=== PATIENT | female | born 1960 | race African-American/Black ===

== ENCOUNTER 2018-07-10 19:53 | Emergency (ER) | payer OTHER ==
[~2018-07-10] VITALS: Ht 170.2 cm; Wt 99.4 kg
[2018-07-10] MEDS ORDERED: HYDROcodone/APAP 5/325MG 1 TAB TABLET PO ONE (20:30)
--- NOTE | 2018-07-10 20:34 | PHYS DOC ---
Past History Past Medical History: Arthritis, Diabetes, Hypertension Past Surgical History: No Surgical History Alcohol Use: None Drug Use: None Adult General Chief Complaint Chief Complaint: GENERALIZED BODY ACHES HPI HPI 58 year old female presents with exacerbation of her chronic polydrug pain. She has been diagnosed with osteoarthritis. The patient recently moved to [place] for [facility] and has not been able to establish with a new PCP. She ran out of her normal pain medications which she states are [place] 10/ 325. She takes one to 3 days a day for pain. The patient has been trying heating pad, ice pack, with lidocaine patches at home. They do help some but not completely effective. She has an appointment with a new PCP in 4 days. She denies any new trauma. She denies fever or chills. She has no other complaints. Review of Systems Review of Systems Constitutional: Denies fever or chills [] Eyes: Denies change in visual acuity, redness, or eye pain [] HENT: Denies nasal congestion or sore throat [] Respiratory: Denies cough or shortness of breath [] Cardiovascular: No additional information not addressed in HPI [] GI: Denies abdominal pain, nausea, vomiting, bloody stools or diarrhea [] : Denies dysuria or hematuria [] Musculoskeletal: Multiple joint pain [] Integument: Denies rash or skin lesions [] Neurologic: Denies headache, focal weakness or sensory changes [] Endocrine: Denies polyuria or polydipsia [] All other systems were reviewed and found to be within normal limits, except as documented in this note. Allergies Allergies Allergies Coded Allergies Type Severity Reaction Last Updated Verified aspirin Allergy Intermediate 07/10/18 Yes meloxicam Allergy Intermediate 07/10/18 Yes Physical Exam Physical Exam Constitutional: Well developed, well nourished, no acute distress, non-toxic appearance. [] HENT: Normocephalic, atraumatic, bilateral external ears normal, oropharynx moist, no oral exudates, nose normal. [] Eyes: PERRLA, EOMI, conjunctiva normal, no discharge. [] Neck: Normal range of motion, no tenderness, supple, no stridor. [] Cardiovascular:Heart rate regular rhythm, no murmur [] Lungs & Thorax: Bilateral breath sounds clear to auscultation [] Abdomen: Bowel sounds normal, soft, no tenderness, no masses, no pulsatile masses. [] Skin: Warm, dry, no erythema, no rash. Surgical scars on bilateral wrists[] Back: No tenderness, no CVA tenderness. [] Extremities: No tenderness, no cyanosis, no clubbing, ROM intact, no edema. [] Neurologic: Alert and oriented X 3, normal motor function, normal sensory function, no focal deficits noted. [] Psychologic: Affect normal, judgement normal, mood normal. [] Current Patient Data Vital Signs Vital Signs Date Time Temp Pulse Resp B/P (MAP) Pulse Ox O2 Delivery O2 Flow Rate FiO2 07/10/18 19:55 98.2 90 18 98 Room Air EKG EKG [] Radiology/Procedures Radiology/Procedures [] Course & Med Decision Making Course & Med Decision Making Pertinent Labs and Imaging studies reviewed. (See chart for details) I explained to the patient that we are unable to provide a prescription for narcotic pain medication for chronic conditions. She understands that she needs to get these from her primary physician and coronary her old doctor with her new doctor. I am able to give the patient a pain pill here in the ED. He states understanding and does not complain about this plan. I will give her 60 mg of Toradol IM and one [place] 5/325. She is stable for discharge at this time. [] Dragon Disclaimer Dragon Disclaimer This electronic medical record was generated, in whole or in part, using a voice recognition dictation system. Departure Departure: Referrals: ELENA BEE MD (PCP) HARRY LIMON DO Jul 10, 2018 20:34
[2018-07-10] MEDS ORDERED: KETOROLAC 60 MG/2 ML VIAL. IM ONE (21:00)
[2018-07-10 21:07] VITALS: BP 154/68
== END 2018-07-10 21:06 | disposition home or self-care (01) ==
LOC: ER 19:53
DX: M25.50 Pain in unspecified joint (principal); M19.90 Unspecified osteoarthritis, unspecified site; E11.9 Type 2 diabetes mellitus without complications; I10 Essential (primary) hypertension; Z88.6 Allergy status to analgesic agent; Z88.8 Allergy status to other drugs, medicaments and biological substances
CPT/HCPCS: 96372; 99283; J1885

== ENCOUNTER 2018-12-14 07:32 | Observation (INO) | payer OTHER ==
[~2018-12-14] VITALS: Ht 170.2 cm; Wt 95.0 kg
[2018-12-14] MEDS ORDERED: IV NORMAL SALINE 1,000ML 1,000 ML IV SCH ×2 (07:45→08:47)
[2018-12-14] MEDS ORDERED: FAMOTIDINE 20 MG/2 ML VIAL IVP ONE ×2 (08:00→18:15)
[2018-12-14] MEDS ORDERED: diphenhydrAMINE 50 MG/ML VIAL IV ONE (08:00)
[2018-12-14] MEDS ORDERED: methylPREDNISolone SOD SUCC PF 125 MG/2 ML VIAL. IV ONE (08:00)
--- NOTE | 2018-12-14 08:18 | PHYS DOC ---
Past History Past Medical History: Anemia, Arthritis, Diabetes, Hypertension Past Surgical History: Cholecystectomy, Tubal ligation, Other Alcohol Use: None Drug Use: None Adult General Chief Complaint Chief Complaint: ALLERGIC REACTION HPI HPI Patient is a 58 year old female who brought in by EMS because of allergic reaction. Patient had history of diabetes and was on Lantus but because of elevation of blood sugar her physician changed Lantus to Levemir and she started the first dose of Levemir last night at 1800. Patient states she woke up this morning with swelling of her lips and tongue and lower part of face without shortness of breath, rash, itching or problem with her breathing. She complaining of problem with swallowing and talking. Patient did not have allergic reaction previously. Patient currently taking lisinopril. EMS reported patient had blood sugar read as "high". Review of Systems Review of Systems Constitutional: Denies fever or chills [] Eyes: Denies change in visual acuity, redness, or eye pain [] HENT: Denies nasal congestion or sore throat [] Respiratory: Denies cough or shortness of breath [] Cardiovascular: No additional information not addressed in HPI [] GI: Denies abdominal pain, nausea, vomiting, bloody stools or diarrhea [] : Denies dysuria or hematuria [] Musculoskeletal: Denies back pain or joint pain [] Integument: Denies rash or skin lesions [] Neurologic: Denies headache, focal weakness or sensory changes [] Endocrine: Denies polyuria or polydipsia [] All other systems were reviewed and found to be within normal limits, except as documented in this note. Current Medications Current Medications Current Medications Medications (Trade) Dose Ordered Sig/Simon Start Time Stop Time Status Last Admin Dose Admin Diphenhydramine HCl (Benadryl) 50 mg 1X ONCE 12/14/18 08:00 12/14/18 08:01 DC 12/14/18 07:54 50 MG Famotidine (Pepcid Vial) 20 mg 1X ONCE 12/14/18 08:00 12/14/18 08:01 DC 12/14/18 07:54 20 MG Methylprednisolone Sodium Succinate (SOLU-Medrol 125MG VIAL) 125 mg 1X ONCE 12/14/18 08:00 12/14/18 08:01 DC 12/14/18 07:54 125 MG Sodium Chloride 1,000 ml @ 1,000 mls/hr Q1H 12/14/18 07:45 12/14/18 08:44 12/14/18 07:56 1,000 MLS/HR Allergies Allergies Allergies Coded Allergies Type Severity Reaction Last Updated Verified aspirin Allergy Mild ITCHY 07/10/18 Yes meloxicam Allergy Mild DIZZY 07/10/18 Yes Physical Exam Physical Exam Constitutional: Well developed, well nourished, mild distress, non-toxic appearance. [] HENT: Normocephalic, atraumatic, bilateral external ears normal, facial edema without erythema, lower lip with edema, tongue with moderate edema without uvula edema,oropharynx moist, no oral exudates, nose normal. [] Eyes: PERRLA, EOMI, conjunctiva normal, no discharge. [] Neck: Normal range of motion, no tenderness, supple, no stridor. [] Cardiovascular:Heart rate regular rhythm, no murmur [] Lungs & Thorax: Bilateral breath sounds clear to auscultation [] Abdomen: Bowel sounds normal, soft, no tenderness, no masses, no pulsatile masses. [] Skin: Warm, dry, no erythema, no rash. [] Back: No tenderness, no CVA tenderness. [] Extremities: No tenderness, no cyanosis, no clubbing, ROM intact, no edema. [] Neurologic: Alert and oriented X 3, normal motor function, normal sensory function, no focal deficits noted. [] Psychologic: Affect normal, judgement normal, mood normal. [] Current Patient Data Vital Signs Vital Signs Date Time Temp Pulse Resp B/P (MAP) Pulse Ox O2 Delivery O2 Flow Rate FiO2 12/14/18 07:56 81 18 94 Room Air 12/14/18 07:32 98.3 EKG EKG [] Radiology/Procedures Radiology/Procedures [] Course & Med Decision Making Course & Med Decision Making Pertinent Labs reviewed. (See chart for details) Evaluation of patient in ER showed 58-year-old female patient with an allergic reaction and swelling of tongue and lips and face since this morning without shortness of breath. Patient treated with Benadryl, Pepcid, Solu-Medrol and IV fluid with mild improvement of her condition. Patient had also elevation of blood sugar at 507 and treated with IV fluid and insulin with gradual decrease of blood sugar to 337. Because of moderate to severe tongue edema and elevation of blood sugar plan to admit patient for treatment. Dr. Watson accepted admission at 0843. Dragon Disclaimer Dragon Disclaimer This electronic medical record was generated, in whole or in part, using a voice recognition dictation system. Departure Departure: Impression: Primary Impression: Allergic angioedema Additional Impressions: Hyperglycemia Uncontrolled diabetes mellitus Disposition: 09 ADMITTED INPATIENT (at 0 844) Admitting Physician: Alyssa Watson (accepted admission at 0843) Condition: IMPROVED Problem Qualifiers STEFAN BHATTI MD Dec 14, 2018 08:18
[2018-12-14 08:33] LABS: BASO # 0.1 x10^3/uL (0.0-0.2); BASO % 1 % (0-3); EOS # 0.1 x10^3/uL (0.0-0.7); EOS % 1 % (0-3); HEMATOCRIT 33.8 % (36.0-47.0); HEMOGLOBIN 10.3 g/dL (12.0-15.5); LYMPH # 2.7 x10^3/uL (1.0-4.8); LYMPH % 22 % (24-48); MEAN CORPUSCULAR HEMOGLOBIN 20 pg (25-35); MEAN CORPUSCULAR HGB CONC 31 g/dL (31-37); MEAN CORPUSCULAR VOLUME 64 fL (79-100); MONO # 0.7 x10^3/uL (0.0-1.1); MONO % 6 % (0-9); NEUT # 8.5 x10^3uL (1.8-7.7); NEUT % 70 % (31-73); PLATELET COUNT 147 x10^3/uL (140-400); RED BLOOD COUNT 5.26 x10^6/uL (3.50-5.40); RED CELL DISTRIBUTION WIDTH 18.3 % (11.5-14.5); WHITE BLOOD COUNT 12.1 x10^3/uL (4.0-11.0)
[2018-12-14] MEDS ORDERED: INSULIN REGULAR 100 UNIT/ML 3ML VIAL. IV ONE (08:45)
[2018-12-14 08:46] LABS: ALBUMIN 3.1 g/dL (3.4-5.0); ALBUMIN/GLOBULIN RATIO 0.7 (1.0-1.7); CALCIUM 8.8 mg/dL (8.5-10.1); CREATININE 1.1 mg/dL (0.6-1.0); GFR 62.2; POTASSIUM 3.5 mmol/L (3.5-5.1); TOTAL BILIRUBIN 0.2 mg/dL (0.2-1.0); TOTAL PROTEIN 7.6 g/dL (6.4-8.2)
[2018-12-14 09:35] VITALS: BP 110/75
[2018-12-14 10:19] LABS: ANISOCYTOSIS SLIGHT; HYPOCHROMIA MOD; PLT ESTIMATE DECREASED (ADEQUATE); POLYCHROMASIA PRESENT
[2018-12-14 10:20] LABS: MICROCYTOSIS MOD; STOMATOCYTES OCC
[2018-12-14] MEDS ORDERED: ATOR20TA58 PO (11:23)
[2018-12-14] MEDS ORDERED: CARV12.5 PO (11:23)
[2018-12-14] MEDS ORDERED: AMLO10TA6 PO (11:23)
[2018-12-14] MEDS ORDERED: FLUC100T4 PO (11:23)
[2018-12-14] MEDS ORDERED: LISI40TA PO (11:23)
[2018-12-14] MEDS ORDERED: INSU100I13 SQ (11:23)
[2018-12-14] MEDS ORDERED: MIRT30TA3 PO (11:23)
[2018-12-14] MEDS ORDERED: PREG150C PO (11:23)
[2018-12-14] MEDS ORDERED: HYDR12.58 PO (11:23)
[2018-12-14] MEDS ORDERED: GLIM2TAB2 PO (11:23)
[2018-12-14] MEDS ORDERED: SITA100T PO (11:23)
[2018-12-14] MEDS ORDERED: OXYC1TAB22 PO (11:23)
[2018-12-14] MEDS ORDERED: ESCITALOPRAM OX10 MG PO (11:23)
[2018-12-14] MEDS ORDERED: DEXTROSE 50% 25 GM / 50ML DISP.SYRIN. IV PRN (11:30)
[2018-12-14] MEDS ORDERED: INSULIN LISPRO 300 UNITS/3 ML INSULN.PEN. SQ SCH (12:00)
[2018-12-14 15:23] VITALS: BP 120/80
--- NOTE | 2018-12-14 16:00 | HP ---
ADMIT DATE: 12/14/2018 HISTORY OF PRESENT ILLNESS: The patient is a 58-year-old -[place]ones[place] female patient, who was brought to the Emergency Room by emergency medical service because of allergic reaction. The patient has a history of diabetes and was on Lantus because of elevation of blood sugar. Her physician changed Lantus to Levemir and she started her dose of Levemir last night at 1800. The patient stated that she woke up in this morning with swelling of her lips, tongue and lower part of her face without shortness of breath, rash, itching, and problem with breathing. She did complain of problem with swallowing and talking. She did not have allergic reaction previously. She is also taking lisinopril. Her blood sugar was read as high when she was checked by emergency medical service personnel. She was evaluated in the Emergency Room, was treated for angioneurotic edema, most likely due to lisinopril. She also noted to have poorly controlled diabetes mellitus and severe hyperglycemia. She was given IV Solu-Medrol, IV fluid as well as Benadryl and Pepcid. She did dramatically improve actually by the time I saw her, she was already eating her lunch and has no problem with swallowing or the lip swelling, tongue and lower part of the face swelling has largely subsided. PAST MEDICAL HISTORY: Significant for hypertension, type 2 diabetes, hyperlipidemia, osteoarthritis, sickle cell trait, right-sided carotid stenosis with left-sided CVA in 2007. PAST SURGICAL HISTORY: Significant for cholecystectomy, total abdominal hysterectomy, bilateral salpingo-oophorectomy, left wrist fracture, status post open reduction and internal fixation and right carotid endarterectomy. ALLERGIES: She is allergic to ASPIRIN AND MELOXICAM. MEDICATIONS: She is currently on following medications: She is on fluconazole 100 mg once a day, atorvastatin calcium 20 mg daily, carvedilol 12.5 mg twice a day with meals, amlodipine 10 mg daily, lisinopril 40 mg daily, oxycodone/APAP 10/325 one tablet every 6 hours, pregabalin 150 mg twice a day, escitalopram oxalate 10 mg once a day, mirtazapine 30 mg at bedtime, hydrochlorothiazide 12.5 mg once a day. She is on sitagliptin phosphate 100 mg once a day. She is on Lantus 30 units at bedtime and she is on glimepiride 2 mg daily. FAMILY HISTORY: She has one brother, who is younger and has hypertension and open heart surgery. One sister younger has diabetes and hypertension. Her father and is known to have sickle cell anemia. Mother at the age of 56 because of acute upper airway obstruction, possibly angioneurotic edema. SOCIAL HISTORY: She is . She has 5 daughters and 5 sons. She smokes a pack a day, does not drink alcohol or recreational drugs. She is currently on disability. She used a cane. REVIEW OF SYSTEMS: The patient denied any blurring of vision, cataract, glaucoma or macular degeneration. Denied any earache, tinnitus or sensorineural deafness. Denied any nosebleeds, stuffy nose or postnasal drip. Denied any sore throat, sore tongue, toothache, hoarseness of voice or difficulty swallowing. Denied any nausea, vomiting, diarrhea or constipation. Denied any hematemesis, melena or hematochezia. Denied any dysuria, frequency or hematuria. Denied any chest pain. Did complain obviously of shortness of breath, tingling and numbness and swelling of her lips and tongue as well as her lower side of the face. PHYSICAL EXAMINATION: GENERAL: On examining her, she looked well and was clearly in no apparent respiratory distress, slightly pale, but no jaundice, cyanosis, or thyromegaly. No jugular venous distension. No lower limb edema. VITAL SIGNS: Her heart rate was 80, blood pressure was 143/104, temperature was 98.3, respiratory rate was 18 and oxygen saturation was 94%. HEAD, EYES, EARS, NOSE AND THROAT: Showed normocephalic, atraumatic. NECK: Supple. HEART: Showed normal first and second heart sounds with no gallop, rub or murmur. CHEST: Clear to auscultation. No crepitation or rhonchi. ABDOMEN: Distended, soft, nontender. NEUROLOGIC: She is awake, alert, responding appropriately. Cranial nerves intact. EXTREMITIES: She moves extremities without difficulty. She ambulates with a cane. LABORATORY DATA: On arrival showed a white cell count 12,000, hemoglobin 10, hematocrit 33, MCV 64 and platelet count of 147,000. Her serum sodium was 133, potassium 3.5, chloride 93, bicarbonate 31, anion gap of 9, BUN 14, creatinine 1.1, estimated GFR was 62 mL per minute. Her glucose was 508, calcium was 8.8. Total bilirubin, AST, ALT, alkaline phosphatase were normal. Total protein was 7.6, albumin 3.1. ASSESSMENT AND PLAN: The patient was diagnosed with angioneurotic edema, most likely secondary to lisinopril, although her mom has of upper airway obstruction and she might obviously has C1 esterase inhibitor, although she has never had any similar episode before and she has lisinopril and also that changed to Levemir. I will continue with the Benadryl and I will add another dose of Solu-Medrol. I advised the patient to stay overnight and can be discharged back home tomorrow to follow with her primary care physician. We will change her lisinopril to losartan and advised her to discontinue lisinopril altogether. ALVIN YI MD DR: MAYRA/coco JOB#: [id number] / [id number]
[2018-12-14] MEDS: CARVEDILOL 12.5 MG TABLET PO SCH (16:10)
[2018-12-14] MEDS: oxyCODONE/APAP 10/325 1 TAB TABLET PO PRN ×2 (16:12→22:30)
[2018-12-14] MEDS ORDERED: INSULIN LISPRO 300 UNITS/3 ML INSULN.PEN. SQ ONE ×2 (17:00→20:30)
[2018-12-14] MEDS: INSULIN LISPRO 300 UNITS/3 ML INSULN.PEN. SQ SCH (17:00)
[2018-12-14] MEDS ORDERED: diphenhydrAMINE HCL 25 MG CAPSULE PO ONE (18:15)
[2018-12-14] MEDS ORDERED: methylPREDNISolone SOD SUCC PF 40 MG/ML VIAL. IV ONE (18:15)
[2018-12-14 19:42] VITALS: BP 122/75
[2018-12-14] MEDS: PREGABALIN 75 MG CAPSULE PO SCH (20:48)
[2018-12-14] MEDS ORDERED: INSULIN GLARGINE 300 UNITS/3 ML INSULN.PEN. SQ SCH (21:00)
[2018-12-14] MEDS ORDERED: MIRTAZAPINE 30 MG TABLET PO SCH (21:00)
[2018-12-14 23:29] LABS: CLARITY,URINE CLEAR; COLOR,URINE YELLOW
[2018-12-14 23:30] LABS: BACTERIA,URINE 0 /HPF (0-FEW); BILIRUBIN,URINE NEG (NEG); GLUCOSE,URINE >=1000 mg/dL (NEG); NITRITE,URINE NEG (NEG); RBC,URINE 0 /HPF (0-2); SQUAMOUS EPITHELIAL CELL,UR FEW /LPF; UROBILINOGEN,URINE 0.2 mg/dL (0.2 mg/dL); WBC,URINE RARE /HPF (0-4)
[2018-12-14 23:48] VITALS: BP 116/75
[2018-12-15 06:01] VITALS: BP 119/74
[2018-12-15] MEDS: INSULIN LISPRO 300 UNITS/3 ML INSULN.PEN. SQ SCH ×2 (08:18→12:13)
[2018-12-15] MEDS: CARVEDILOL 12.5 MG TABLET PO SCH (08:20)
[2018-12-15] MEDS: oxyCODONE/APAP 10/325 1 TAB TABLET PO PRN (08:21)
[2018-12-15] MEDS: PREGABALIN 75 MG CAPSULE PO SCH (08:23)
[2018-12-15] MEDS ORDERED: FLUCONAZOLE 100 MG TABLET. PO SCH (09:00)
[2018-12-15] MEDS ORDERED: amLODIPine BESYLATE 10 MG TABLET PO SCH (09:00)
[2018-12-15] MEDS ORDERED: CITALOPRAM 20 MG TABLET. PO SCH (09:00)
[2018-12-15] MEDS ORDERED: LOSARTAN 50 MG TABLET. PO SCH (09:00)
[2018-12-15] MEDS ORDERED: LINAGLIPTIN 5 MG TABLET PO SCH (09:00)
[2018-12-15] MEDS ORDERED: GLIMEPIRIDE 2 MG TABLET PO SCH (09:00)
[2018-12-15] MEDS ORDERED: ATORVASTATIN CALCIUM 20 MG TABLET PO SCH (09:00)
[2018-12-15] MEDS ORDERED: hydroCHLOROthiazide 25 MG TABLET PO SCH (09:00)
[2018-12-15 11:20] VITALS: BP 102/66
[2018-12-15] MEDS ORDERED: LOSA100T14 PO (14:14)
--- NOTE | 2018-12-15 15:18 | DS ---
DATE OF DISCHARGE: 12/15/2018 HOSPITAL COURSE: The patient is a 58-year-old -[place] female patient, who was admitted with a complaint of swelling of her tongue, lower part of her face, both lips and was evaluated in the Emergency Room, was diagnosed with angioneurotic edema, treated with IV Solu-Medrol, Pepcid as well as Benadryl, was kept in the hospital for more than 24 hours. We did repeat her treatment with Solu-Medrol, Benadryl, and Pepcid. She has had no further episode of angioneurotic edema. I discontinued her lisinopril, start her on losartan and was discharged home. Her blood sugar was high yesterday, so we adjusted her insulin to accommodate for the fact of steroids and she remained stable. Her blood sugar was much better controlled and a decision was made to discharge her home to follow with her primary care physician. PHYSICAL EXAMINATION: GENERAL: When I examined her today, she looked well and was clearly in no apparent respiratory distress. No pallor, jaundice, cyanosis, or thyromegaly. No jugular venous distension. No limb edema. VITAL SIGNS: Her heart rate was 82, blood pressure was 102/66, temperature was 97.6, respiratory rate 20, and oxygen saturation was 90%. HEAD, EYES, EARS, NOSE AND THROAT: Showed normocephalic, atraumatic. NECK: Supple. HEART: Showed normal first and second sounds. No gallop or murmur. CHEST: Clear to auscultation. No crepitation or rhonchi. ABDOMEN: Distended, soft, nontender. No guarding or rigidity. No organomegaly. All hernial orifice intact. Bowel sounds normal. NEUROLOGIC: She was awake, alert, responding appropriately. All cranial nerves intact. She moves extremities without difficulty. She ambulates without assistance or assistive devices. She has been able to eat and drink without difficulty. No shortness of breath and difficulty swallowing. DISCHARGE MEDICATIONS: She was discharged home to continue on losartan 100 mg once a day, amlodipine 10 mg once a day, atorvastatin 20 mg once a day, carvedilol 12.5 mg twice a day, escitalopram oxalate 10 mg once a day, fluconazole 100 mg daily, glimepiride 2 mg once a day, hydrochlorothiazide 12.5 mg once a day, Lantus 30 units before at bedtime, mirtazapine 30 mg at bedtime, oxycodone 10/325 one tablet every 6 hours, pregabalin for Lyrica 150 mg twice a day and sitagliptin for Januvia 100 mg once a day. FINAL DISCHARGE DIAGNOSES: Angioneurotic edema, likely due to CRUZ inhibitor, which was discontinued. She is now on losartan, poorly controlled diabetes is improved. Other medical problems include hyperlipidemia, hypertension and diabetic peripheral neuropathy. ALVIN YI MD DR: MAYRA/coco JOB#: [id number] / [id number]
== END 2018-12-15 14:43 | disposition home or self-care (01) ==
LOC: ER 07:32 → INTOOBSV 09:14 → 1 SOUTH 09:14
PROVIDERS: ADMIT Internal Medicine; ATTEND Internal Medicine
DX: T78.3XXA Angioneurotic edema, initial encounter (principal); T46.4X5A Adverse effect of angiotensin-converting-enzyme inhibitors, initial encounter; E11.65 Type 2 diabetes mellitus with hyperglycemia; Z79.4 Long term (current) use of insulin; I10 Essential (primary) hypertension; E78.5 Hyperlipidemia, unspecified; D57.3 Sickle-cell trait; Z86.73 Personal history of transient ischemic attack (TIA), and cerebral infarction without residual deficits; I65.29 Occlusion and stenosis of unspecified carotid artery; Z90.710 Acquired absence of both cervix and uterus; M19.90 Unspecified osteoarthritis, unspecified site; Z82.49 Family history of ischemic heart disease and other diseases of the circulatory system; Z83.3 Family history of diabetes mellitus; Z83.2 Family history of diseases of the blood and blood-forming organs and certain disorders involving the immune mechanism; F17.210 Nicotine dependence, cigarettes, uncomplicated
CPT/HCPCS: 36415; 80053; 81001; 82947; 85025; 96372; 96374; 96375; 96376; 99284; 99406; G0378; J1200; J1815; J2920; J2930; J3490; Q0163; 96361; G0379; 99285-25; J7030

== ENCOUNTER 2020-02-22 20:12 | Emergency (ER) | payer OTHER, MEDICAID ==
[~2020-02-22] VITALS: Ht 170.2 cm; Wt 98.2 kg
[~2020-02-22 20:12] MED LIST: AMLO10TA8 PO; ATOR20TA58 PO; CARV12.5 PO; ESCITALOPRAM OX10 MG PO; FLUC100T4 PO; GLIM2TAB7 PO; HYDR12.58 PO; INSU100I13 SQ; LISI40TA PO; LOSA100T14 PO; MIRT30TA3 PO; OXYC1TAB22 PO; PREG150C PO; SITA100T PO
[2020-02-22 20:20] VITALS: BP 125/74
--- NOTE | 2020-02-22 20:20 | PHYS DOC ---
Past History Past Medical History: Anemia, Arthritis, Cancer, Diabetes, Hypertension Past Surgical History: Cholecystectomy, Tubal ligation, Other Past Surgical History rectal for cancer Alcohol Use: None Drug Use: None Adult General Chief Complaint Chief Complaint: ".. I got this rash... It comes and goes.. I ve had it for weeks.. it worse the last week.. I want someting done about it..." HPI HPI Patient is a 59 year old female who presents with above hx and complaints hives that are pruritic. She does have a history of angioedema. Patient denies any new foods, meds, or exposures. Patient does smoke. Patient has somewhat extensive medical history with carotid endarterectomy, hives, chronic bronchitis, anal and vaginal cancers with recent surgery. No recent travel outside the [place] area. No specific ill contacts. Patient denies any immunosuppression. She normally follows with Dr. Bee. Review of Systems Review of Systems Constitutional: Denies fever or chills [] Eyes: Denies change in visual acuity, redness, or eye pain [] HENT: Denies nasal congestion or sore throat [] Respiratory: Denies cough or shortness of breath [] Cardiovascular: No additional information not addressed in HPI [] GI: Denies abdominal pain, nausea, vomiting, bloody stools or diarrhea [] : Denies dysuria or hematuria [] Musculoskeletal: Denies back pain or joint pain [] Integument: Complains of hives and itching Neurologic: Denies headache, focal weakness or sensory changes [] Endocrine: Denies polyuria or polydipsia [] All other systems were reviewed and found to be within normal limits, except as documented in this note. Family History Family History Noncontributory to presentation Current Medications Current Medications See nursing for home meds Allergies Allergies Allergies Coded Allergies Type Severity Reaction Last Updated Verified lisinopril Allergy Severe angioedema 06/30/19 Yes strawberry Allergy Intermediate 12/14/18 Yes aspirin Allergy Mild ITCHY 07/10/18 Yes meloxicam Allergy Mild DIZZY 07/10/18 Yes Physical Exam Physical Exam Constitutional: Moderate acute distress, non-toxic appearance. [] HENT: Normocephalic, atraumatic, bilateral external ears normal, oropharynx moist, no oral exudates, nose normal. [] Eyes: PERRLA, EOMI, conjunctiva normal, no discharge. Glasses Neck: Normal range of motion, no tenderness, supple, no stridor. [] Endarterectomy scar right sided neck Cardiovascular:Heart rate regular rhythm, no murmur [] Lungs & Thorax: Bilateral breath sounds equal at apexes with a few scattered wheezes auscultation [] Abdomen: Bowel sounds normal, soft, no tenderness, no masses, no pulsatile masses. [Obese Skin: Warm, dry, no erythema, hives and scratch melo. Back: No tenderness, no CVA tenderness. [] Extremities: No tenderness, no cyanosis, no clubbing, ROM intact, no edema. [] Neurologic: Alert and oriented X 3, normal motor function, normal sensory function, no focal deficits noted. [] Psychologic: Affect anxious, judgement normal, mood normal. [] EKG EKG [] Radiology/Procedures Radiology/Procedures [] Course & Med Decision Making Course & Med Decision Making Pertinent Labs and Imaging studies reviewed. (See chart for details) Patient to attempt to identify eliciting factors such as new foods, drugs, soaps, shoes. Patient take Pepcid once a day. Patient take Benadryl 50 mg up to 4 times a day. Patient use a and D ointment 4 times a day to keep the skin from drying. Patient take prednisone 50 mg a day. Patient follow-up primary care. Patient return if any concerns. Patient encouraged not to smoke. She encouraged him self isolate and practice social distance. Follow with [facility] for up to date information on Covid 19. Impression: 1. Hives 2. Tobacco use 3. History of recent surgery for anal and vaginal cancer [] Dragon Disclaimer Dragon Disclaimer This electronic medical record was generated, in whole or in part, using a voice recognition dictation system. Departure Departure: Disposition: HOME/RESIDENCE PRIOR TO ADM Condition: STABLE Referrals: ELENA BEE MD (PCP) Scripts Famotidine (PEPCID) 20 Mg Tablet 20 MG PO DAILY for hives for 14 Days, #14 TAB Prov: ORA MAR MD 02/22/20 Prednisone (PREDNISONE) 50 Mg Tablet 1 TAB PO DAILY for hives, #5 TAB Prov: ORA MAR MD 02/22/20 Nayeli Disclaimer This chart was dictated in whole or in part using Voice Recognition software in a busy, high-work load, and often noisy Emergency Department environment. It may contain unintended and wholly unrecognized errors or omissions. Dragon Disclaimer This chart was dictated in whole or in part using Voice Recognition software in a busy, high-work load, and often noisy Emergency Department environment. It may contain unintended and wholly unrecognized errors or omissions. Dragon Disclaimer This chart was dictated in whole or in part using Voice Recognition software in a busy, high-work load, and often noisy Emergency Department environment. It may contain unintended and wholly unrecognized errors or omissions. ORA MAR MD Feb 22, 2020 20:20
[2020-02-22] MEDS ORDERED: FAMO-63 PO (20:39)
[2020-02-22] MEDS ORDERED: PRED50TA PO (20:39)
[2020-02-22] MEDS ORDERED: FAMOTIDINE 20 MG TABLET PO ONE (21:00)
[2020-02-22] MEDS ORDERED: diphenhydrAMINE HCL 25 MG CAPSULE PO ONE (21:00)
[2020-02-22] MEDS ORDERED: methylPREDNISolone ACETATE 40 MG/ML VIAL. IM ONE (21:00)
== END 2020-02-22 21:01 | disposition home or self-care (01) ==
LOC: ER 20:12
DX: L50.9 Urticaria, unspecified (principal); M19.90 Unspecified osteoarthritis, unspecified site; E11.9 Type 2 diabetes mellitus without complications; I10 Essential (primary) hypertension; Z86.2 Personal history of diseases of the blood and blood-forming organs and certain disorders involving the immune mechanism; Z90.49 Acquired absence of other specified parts of digestive tract; Z98.51 Tubal ligation status; Z98.890 Other specified postprocedural states; Z88.8 Allergy status to other drugs, medicaments and biological substances; Z88.6 Allergy status to analgesic agent; Z91.018 Allergy to other foods
CPT/HCPCS: 96372; 99283; J1030; Q0163